=== PATIENT | male | born 1970 | race African-American/Black ===

== ENCOUNTER 2025-01-24 14:54 | Emergency (ER) | payer MEDICAID ==
[2025-01-24 17:02] LABS: BASO % 0.5 % (0.0-1.0); EOS # 0.4 10*3/uL (0.0-0.4); HEMATOCRIT 45.5 % (42.0-52.0); MEAN CELL VOLUME 90.3 fl (80.0-94.0); MEAN CORPUSCULAR HGB 29.8 pg (27.0-31.0); MONO # 0.7 10*3/uL (0.1-1.0); NEUT # 4.8 10*3/uL (2.3-7.9); NEUT % 63.6 % (47.0-73.0); PLATELET COUNT AUTOMATED 250 10*3/uL (130-400); RED BLOOD COUNT 5.04 10*6/uL (4.50-5.90); RED CELL DISTRI WIDTH 13.2 % (0-14.5); WHITE BLOOD COUNT 7.6 10*3/uL (4.8-10.8)
[2025-01-24 17:13] LABS: BILIRUBIN Negative (Negative); BLOOD Negative (Negative); CLARITY Clear (Clear); COLOR Yellow (Yellow); GLUCOSE Negative (Negative); KETONE Trace (Negative); LEUKO ESTERASE Negative (Negative); NITRITE Negative (Negative); PH 5.5 (4.5-8.0); SPECIFIC GRAVITY 1.015 (1.001-1.030); UROBILINOGEN 0.2 E.U./dl (0.0-1.0)
[2025-01-24 17:26] LABS: BACTERIA 1+
[2025-01-24 17:32] LABS: POTASSIUM 3.5 mmol/L (3.4-5.1); TOTAL PROTEIN 8.2 gm/dL (6.0-8.0)
[2025-01-28] MEDS ORDERED: CIPRO500 MG PO (14:02)
== END 2025-01-24 20:02 | disposition home or self-care (01) ==
LOC: ED 14:54
PROVIDERS: Nurse Practitioner Family
DX: I12.0 Hypertensive chronic kidney disease with stage 5 chronic kidney disease or end stage renal disease (principal); N18.5 Chronic kidney disease, stage 5; R41.0 Disorientation, unspecified; Z99.2 Dependence on renal dialysis; Z89.511 Acquired absence of right leg below knee